=== PATIENT | male | born 1975 | race Caucasian/White ===

== ENCOUNTER → 2023-11-19 | Outpatient (CLI) | payer BC ==
--- NOTE | 2023-11-19 12:13 | CA ---
Exercise Stress Test Report Name: Elijah Vann Exam Date: 11/19/2023 09:02 Exam Location: [place] Stress Ht (in): 70 Wt (lb): 260 BSA: 2.33 Ordering Phys: Enrique Kent DO Referring Phys: Armida Flores PAC Technologist: Amanda Oliveros Age: 48 Gender: M : 1975 Procedure CPT: Indications: R07.89 chest pain ICD-10 Codes: Patient History: CP, DM, CHOL Medications: HYCLIDAZONE, GLIMPIRIDE, METFORMIN, ROSUVASTATIN Meds past 24 hrs: Pretest Chest Pain: STRESS TEST Ming Protocol Exercise Duration (min:sec): 10:[address] Depressions (mm): Angina Score: Rodriguez Score: Resting HR (bpm): 69 Peak HR (bpm): 146 Resting BP (mmHg): 138 / 79 Peak BP (mmHg): 214 / 73 MPHR: 170 Target HR: 145 % MPHR: 86 METS: 12.1 Total Dose: Peak Dose: Atropine: Double Product: 22786 BP Response: Stress Termination: Reached target heart rate Stress Symptoms: No chest pain or symptoms Stress Summary: ECG ANALYSIS Resting ECG: Stress ECG: CONCLUSIONS Patient underwent exercise stress EKG with a Ming protocol treadmill stress test. Patient exercised into Stage 3 for a total of 10 minutes and 18 seconds reaching a total of 12.1 METS. Patient's maximum heart rate was 146 which represented 85 % age-predicted maximum heart rate. Stress EKG findings: At baseline patient's EKG showed normal sinus rhythm, normal axis, no significant ST-T wave abnormalities. At peak exercise, EKG showed no significant change from baseline. Conclusions: 1. Normal EKG response to exercise without evidence of inducible ischemia. 2. Good exercise capacity. Dr. Og Ivey DO (Electronically Signed) Final Date: 19 November 2023 12:12
== END | disposition home or self-care (01) ==
LOC: RADNMMAIN 08:43
PROVIDERS: ATTEND Family Medicine
DX: E11.69 Type 2 diabetes mellitus with other specified complication (principal); E78.2 Mixed hyperlipidemia; R07.89 Other chest pain
CPT/HCPCS: 93017